=== PATIENT | male | born 1945 | race Caucasian/White ===

== ENCOUNTER 2021-04-04 12:29 | Inpatient (IN) ==
[2021-04-04] MEDS ORDERED: ONDANSETRON 4 MG/2 ML VIAL IV PRN (14:46)
[2021-04-04] MEDS ORDERED: hydrALAZINE 20 MG/1 ML VIAL IV PRN (14:46)
[2021-04-04] MEDS ORDERED: ACETAMINOPHEN 325 MG TABLET PO PRN (14:46)
[2021-04-04] MEDS ORDERED: ENOXAPARIN 40 MG/0.4 ML SYRINGE SUBCUT SCH (15:00)
[2021-04-04] MEDS ORDERED: HALOPERIDOL 5 MG/ML AMP IM ONE (16:44)
[2021-04-04 16:52] LABS: Basophils % 0.4 % (0.0-0.8); Eosinophils % 0.5 % (0.00-10.9); Hemoglobin 8.5 GM/DL (14.0-18.0); Immature Granulocytes % 0.8 %; Immature Granulocytes Absolute 0.06 #; Lymphocytes # 1.2 10*3/uL (1.4-4.0); Lymphocytes % 14.9 % (21.2-54.2); Mean Corpuscular HGB Conc 32.7 GM/DL (32-36); Mean Corpuscular Volume 116.1 FL (87-102); Mean Platelet Volume 9.7 FL (9.6-12.0); Monocytes % 3.5 % (1.7-12.7); Neutrophils % 79.9 % (38.7-73.9); Platelet Count 307 T/CUMM (130-400); Red Blood Count 2.24 MC/CUMM (3.8-5.5); Red Cell Distribution Width 14.7 % (9.3-17.3); White Blood Count 7.7 T/CUMM (4-12)
[2021-04-04 17:04] LABS: Albumin 3.9 G/DL (3.4-5.0); Bilirubin,Total 0.8 MG/DL (0.2-1.0); Calcium 8.9 MG/DL (8.5-10.1); Osmolality,Calculated 285.5 MOS/KG (273-304); Potassium 5.4 MMOL/L (3.5-5.1); Total Protein 6.8 G/DL (6.4-8.2)
[2021-04-04] MEDS: SODIUM CHLORIDE 0.9% 1,000 ML IV SCH (17:18)
[2021-04-04] MEDS ORDERED: ENOXAPARIN 30 MG/0.3 ML SYRINGE SUBCUT SCH (18:30)
[2021-04-04 23:18] LABS: Hematocrit 23.8 VOL% (42.0-52.0); Hemoglobin 7.8 GM/DL (14.0-18.0)
[2021-04-05] MEDS: SODIUM CHLORIDE 0.9% 1,000 ML IV SCH ×2 (03:21→15:03)
[2021-04-05] MEDS: MORPHINE 4 MG/1 ML VIAL IV PRN (04:20)
[2021-04-05 05:51] LABS: Basophils % 0.3 % (0.0-0.8); Eosinophils % 0.3 % (0.00-10.9); Hematocrit 24.5 VOL% (42.0-52.0); Immature Granulocytes % 0.9 %; Immature Granulocytes Absolute 0.06 #; Lymphocytes # 0.9 10*3/uL (1.4-4.0); Lymphocytes % 13.7 % (21.2-54.2); Mean Corpuscular HGB Conc 32.7 GM/DL (32-36); Mean Corpuscular Volume 117.2 FL (87-102); Mean Platelet Volume 9.2 FL (9.6-12.0); Neutrophils % 79.8 % (38.7-73.9); Platelet Count 268 T/CUMM (130-400); Red Blood Count 2.09 MC/CUMM (3.8-5.5); Red Cell Distribution Width 14.6 % (9.3-17.3); White Blood Count 6.8 T/CUMM (4-12)
[2021-04-05 06:13] LABS: Calcium 8.5 MG/DL (8.5-10.1); Osmolality,Calculated 294.7 MOS/KG (273-304); Potassium 5.2 MMOL/L (3.5-5.1)
[2021-04-05] MEDS: PANTOPRAZOLE 40 MG TABLET PO SCH (08:18)
[2021-04-05] MEDS ORDERED: PROPYLENE GLYCOL 0.6% BOTH EYES PRN (10:24)
[2021-04-05] MEDS ORDERED: SODIUM POLYSTYRENE SULFATE 15 GM/60 ML BOTTLE PO STA (10:31)
[2021-04-05] MEDS: cefTRIAXone 2,000 MG in SODIUM CHLORIDE 0.9% 100 ML IV SCH (15:04)
[2021-04-05] MEDS: VANCOMYCIN INJ 1,000 MG in SODIUM CHLORIDE 0.9% 250 ML IV SCH (16:40)
[2021-04-05] MEDS: LINACLOTIDE 145 MCG CAPSULE PO SCH ×2 (16:41→21:04)
[2021-04-05] MEDS ORDERED: SEVOFLURANE 1 UNIT/15 MINUTE INH ONE ×3 (16:45→17:18)
[2021-04-05] MEDS ORDERED: DEXAMETHASONE 4 MG/1 ML VIAL ONE ×2 (16:45→21:14)
[2021-04-05] MEDS ORDERED: ONDANSETRON 4 MG/2 ML VIAL ONE (16:45)
[2021-04-05] MEDS ORDERED: propofoL 200 MG/20 ML VIAL IV ONE (16:45)
[2021-04-05] MEDS ORDERED: ETOMIDATE 40 MG/20 ML VIAL IV ONE (16:45)
[2021-04-05] MEDS ORDERED: LIDOCAINE 2% 5 ML VIAL ONE (16:45)
[2021-04-05] MEDS ORDERED: ROCURONIUM 50 MG/5 ML VIAL IV ONE (16:45)
[2021-04-05] MEDS ORDERED: fentaNYL 100 MCG/2 ML VIAL ONE (16:46)
[2021-04-05] MEDS ORDERED: ACETAMINOPHEN INJ 1,000 MG/100 ML VIAL IV ONE (17:18)
[2021-04-05] MEDS ORDERED: MIDAZOLAM 2 MG/2 ML VIAL ONE (20:06)
[2021-04-05] MEDS ORDERED: ePHEDrine 50 MG/ML VIAL ONE (21:03)
[2021-04-05] MEDS: SENNA 8.6 MG TABLET PO SCH (21:04)
[2021-04-05] MEDS: MEMANTINE 5 MG TABLET PO SCH (21:04)
[2021-04-05] MEDS: SIMETHICONE 180 MG PO SCH (21:04)
[2021-04-05] MEDS ORDERED: ceFAZolin 1,000 MG VIAL ONE (21:10)
[2021-04-05] MEDS ORDERED: NEOSTIGMINE 10 MG/10 ML VIAL ONE (21:14)
[2021-04-05] MEDS ORDERED: GLYCOPYRROLATE 0.4 MG/2 ML VIAL ONE (21:14)
[2021-04-05] MEDS ORDERED: LACTATED RINGERS 1,000 ML IV ONE (21:41)
[2021-04-05] MEDS ORDERED: PHENYLEPHRINE 1 MG/10 ML SYRINGE IV ONE (21:43)
[2021-04-06] MEDS: SODIUM CHLORIDE 0.9% 1,000 ML IV SCH ×3 (00:20→15:30)
[2021-04-06] MEDS: cefTRIAXone 2,000 MG in SODIUM CHLORIDE 0.9% 100 ML IV SCH ×2 (02:05→15:29)
[2021-04-06 05:41] LABS: Calcium 8.3 MG/DL (8.5-10.1); Osmolality,Calculated 298.3 MOS/KG (273-304); Potassium 4.6 MMOL/L (3.5-5.1)
[2021-04-06 05:46] LABS: Folate 4.74 NG/ML (5.38-24.0)
[2021-04-06 06:53] LABS: Basophils % 0.1 % (0.0-0.8); Hematocrit 20.7 VOL% (42.0-52.0); Hemoglobin 6.7 GM/DL (14.0-18.0); Immature Granulocytes % 0.7 %; Immature Granulocytes Absolute 0.06 #; Lymphocytes # 0.8 10*3/uL (1.4-4.0); Lymphocytes % 10.2 % (21.2-54.2); Mean Corpuscular HGB Conc 32.4 GM/DL (32-36); Mean Corpuscular Volume 116.9 FL (87-102); Mean Platelet Volume 9.9 FL (9.6-12.0); Monocytes % 5.2 % (1.7-12.7); Neutrophils % 83.8 % (38.7-73.9); Platelet Count 277 T/CUMM (130-400); Red Blood Count 1.77 MC/CUMM (3.8-5.5); Red Cell Distribution Width 15.2 % (9.3-17.3)
[2021-04-06 07:28] LABS: Hypochromasia 1+; Microcytosis 1+; Platelet Estimate Adequate
[2021-04-06] MEDS ORDERED: ESCITALOPRAM 10 MG TABLET PO SCH (09:00)
[2021-04-06] MEDS: HYDROXYUREA 500 MG CAPSULE PO SCH (09:52)
[2021-04-06] MEDS: ASPIRIN EC 81 MG TABLET PO SCH (09:52)
[2021-04-06] MEDS: BISACODYL 5 MG TABLET PO SCH (09:52)
[2021-04-06] MEDS: PANTOPRAZOLE 40 MG TABLET PO SCH (09:53)
[2021-04-06] MEDS: GABAPENTIN 300 MG CAPSULE PO SCH (09:53)
[2021-04-06] MEDS: LINACLOTIDE 145 MCG CAPSULE PO SCH ×3 (09:53→20:54)
[2021-04-06] MEDS: POLYETHYLENE GLYCOL POWDER 17 GM PACK PO SCH (09:53)
[2021-04-06] MEDS: SENNA 8.6 MG TABLET PO SCH ×2 (09:53→20:54)
[2021-04-06] MEDS: SIMETHICONE 180 MG PO SCH ×2 (09:53→21:02)
[2021-04-06] MEDS: DOCUSATE SODIUM 100 MG CAPSULE PO SCH (09:55)
[2021-04-06] MEDS ORDERED: SODIUM CHLORIDE 0.9% 1,000 ML IV PRN (10:35)
[2021-04-06 10:47] LABS: Eosinophils % 0.1 % (0.00-10.9); Hematocrit 21.4 VOL% (42.0-52.0); Hemoglobin 6.9 GM/DL (14.0-18.0); Immature Granulocytes % 0.5 %; Immature Granulocytes Absolute 0.04 #; Lymphocytes # 1.2 10*3/uL (1.4-4.0); Mean Corpuscular HGB Conc 32.2 GM/DL (32-36); Mean Corpuscular Volume 116.9 FL (87-102); Mean Platelet Volume 9.6 FL (9.6-12.0); Monocytes % 5.6 % (1.7-12.7); Neutrophils % 79.8 % (38.7-73.9); Platelet Count 272 T/CUMM (130-400); Red Blood Count 1.83 MC/CUMM (3.8-5.5); Red Cell Distribution Width 15.5 % (9.3-17.3); White Blood Count 8.2 T/CUMM (4-12)
[2021-04-06 11:10] LABS: Folate 4.76 NG/ML (5.38-24.0); Vitamin B12 966 PG/ML (211-911)
[2021-04-06 12:53] LABS: Sedimentation Rate-Westergren 80 MM/HR (0-20)
[2021-04-06] MEDS: MORPHINE 4 MG/1 ML VIAL IV PRN (15:29)
[2021-04-06] MEDS: VANCOMYCIN INJ 1,000 MG in SODIUM CHLORIDE 0.9% 250 ML IV SCH (17:49)
[2021-04-06] MEDS: MEMANTINE 5 MG TABLET PO SCH (20:54)
[2021-04-07] MEDS: SODIUM CHLORIDE 0.9% 1,000 ML IV SCH ×3 (00:25→08:42)
[2021-04-07] MEDS: cefTRIAXone 2,000 MG in SODIUM CHLORIDE 0.9% 100 ML IV SCH ×2 (01:38→13:20)
[2021-04-07 07:21] LABS: Basophils % 0.3 % (0.0-0.8); Eosinophils % 0.4 % (0.00-10.9); Hemoglobin 8.3 GM/DL (14.0-18.0); Immature Granulocytes % 1.2 %; Immature Granulocytes Absolute 0.09 #; Lymphocytes % 13.6 % (21.2-54.2); Mean Corpuscular HGB Conc 33.2 GM/DL (32-36); Mean Corpuscular Volume 109.2 FL (87-102); Monocytes % 4.9 % (1.7-12.7); Neutrophils % 79.6 % (38.7-73.9); Platelet Count 268 T/CUMM (130-400); Red Blood Count 2.29 MC/CUMM (3.8-5.5); Red Cell Distribution Width 20.3 % (9.3-17.3); White Blood Count 7.6 T/CUMM (4-12)
[2021-04-07 07:41] LABS: Calcium 7.9 MG/DL (8.5-10.1); Osmolality,Calculated 309.3 MOS/KG (273-304); Potassium 3.8 MMOL/L (3.5-5.1)
[2021-04-07] MEDS: ASPIRIN EC 81 MG TABLET PO SCH (08:50)
[2021-04-07] MEDS: POLYETHYLENE GLYCOL POWDER 17 GM PACK PO SCH (08:50)
[2021-04-07] MEDS: HYDROXYUREA 500 MG CAPSULE PO SCH (08:50)
[2021-04-07] MEDS: DOCUSATE SODIUM 100 MG CAPSULE PO SCH (08:50)
[2021-04-07] MEDS: LINACLOTIDE 145 MCG CAPSULE PO SCH ×3 (08:50→20:22)
[2021-04-07] MEDS: BISACODYL 5 MG TABLET PO SCH (08:50)
[2021-04-07] MEDS: PANTOPRAZOLE 40 MG TABLET PO SCH (08:50)
[2021-04-07] MEDS: SENNA 8.6 MG TABLET PO SCH ×2 (08:50→20:22)
[2021-04-07] MEDS: GABAPENTIN 300 MG CAPSULE PO SCH (08:50)
[2021-04-07] MEDS: SIMETHICONE 180 MG PO SCH ×2 (08:51→20:22)
[2021-04-07 10:30] LABS: Bacteria,Urine Occasional /HPF (Few); Bilirubin,Urine Negative (Negative); Blood, Urine Negative (Negative); Glucose,Urine (UA) Negative (Negative); Ketones,Urine 5 mg/dL (Negative); Mucus,Urine Occasional /LPF (Occasional); Nitrite,Urine Negative (Negative); Protein,Urine Negative; RBC,Urine 1 /HPF (0-4); Urine Appearance CLEAR (Clear); Urine Color Yellow (Yellow); Urine Specific Gravity 1.011 (1.001-1.035); Urine Urobilinogen < 2.0 EU/DL (0.2-1.0)
[2021-04-07] MEDS: DEXTROSE 5% 1,000 ML IV SCH (10:36)
[2021-04-07] MEDS: FOLIC ACID 1 MG TABLET PO SCH (14:31)
[2021-04-07] MEDS: VANCOMYCIN INJ 1,000 MG in SODIUM CHLORIDE 0.9% 250 ML IV SCH (15:30)
[2021-04-07] MEDS: MEMANTINE 5 MG TABLET PO SCH (20:22)
[2021-04-08] MEDS: cefTRIAXone 2,000 MG in SODIUM CHLORIDE 0.9% 100 ML IV SCH ×2 (01:06→13:38)
[2021-04-08] MEDS: DEXTROSE 5% 1,000 ML IV SCH ×2 (04:00→13:38)
[2021-04-08 05:39] LABS: Basophils % 0.3 % (0.0-0.8); Eosinophils # 0.1 10*3/uL (0.0-0.87); Eosinophils % 0.5 % (0.00-10.9); Hematocrit 28.6 VOL% (42.0-52.0); Hemoglobin 9.4 GM/DL (14.0-18.0); Immature Granulocytes % 0.9 %; Lymphocytes # 1.8 10*3/uL (1.4-4.0); Lymphocytes % 15.9 % (21.2-54.2); Mean Corpuscular HGB Conc 32.9 GM/DL (32-36); Mean Corpuscular Volume 111.3 FL (87-102); Mean Platelet Volume 10.1 FL (9.6-12.0); Monocytes % 5.4 % (1.7-12.7); Platelet Count 316 T/CUMM (130-400); Red Blood Count 2.57 MC/CUMM (3.8-5.5); Red Cell Distribution Width 19.2 % (9.3-17.3)
[2021-04-08 05:55] LABS: Calcium 8.2 MG/DL (8.5-10.1); Osmolality,Calculated 307.4 MOS/KG (273-304); Potassium 3.6 MMOL/L (3.5-5.1)
[2021-04-08 05:59] LABS: Hypochromasia 1+; Microcytosis 1+
[2021-04-08 06:00] LABS: Anisocytosis 1+; Platelet Estimate Normal
[2021-04-08] MEDS: DOCUSATE SODIUM 100 MG CAPSULE PO SCH (08:17)
[2021-04-08] MEDS: ASPIRIN EC 81 MG TABLET PO SCH (08:17)
[2021-04-08] MEDS: BISACODYL 5 MG TABLET PO SCH (08:17)
[2021-04-08] MEDS: HYDROXYUREA 500 MG CAPSULE PO SCH (08:17)
[2021-04-08] MEDS: FOLIC ACID 1 MG TABLET PO SCH (08:17)
[2021-04-08] MEDS: LINACLOTIDE 145 MCG CAPSULE PO SCH (08:17)
[2021-04-08] MEDS: POLYETHYLENE GLYCOL POWDER 17 GM PACK PO SCH (08:17)
[2021-04-08] MEDS: SIMETHICONE 180 MG PO SCH ×2 (08:18→20:33)
[2021-04-08] MEDS: SENNA 8.6 MG TABLET PO SCH ×2 (08:18→20:33)
[2021-04-08] MEDS: PANTOPRAZOLE 40 MG TABLET PO SCH (08:18)
[2021-04-08] MEDS: GABAPENTIN 300 MG CAPSULE PO SCH (08:18)
[2021-04-08 09:23] LABS: Hemoglobin A1 (Alkaline) 97.6 % (96.5-98.5); Hemoglobin A2 (Alkaline) 2.4 % (1.5-3.5)
[2021-04-08] MEDS: MORPHINE 4 MG/1 ML VIAL IV PRN (15:43)
[2021-04-08] MEDS: ZIPRASIDONE 20 MG/1 ML VIAL IM PRN (18:00)
[2021-04-08] MEDS ORDERED: METOPROLOL TARTRATE 5 MG/5 ML VIAL IV PRN (19:13)
[2021-04-08] MEDS: METOPROLOL TARTRATE 5 MG/5 ML VIAL IV SCH ×3 (19:45→19:55)
[2021-04-08] MEDS: MEMANTINE 5 MG TABLET PO SCH (20:33)
[2021-04-09 01:22] LABS: Basophils % 0.1 % (0.0-0.8); Eosinophils # 0.1 10*3/uL (0.0-0.87); Eosinophils % 0.5 % (0.00-10.9); Hematocrit 26.8 VOL% (42.0-52.0); Hemoglobin 9.2 GM/DL (14.0-18.0); Immature Granulocytes % 0.5 %; Immature Granulocytes Absolute 0.05 #; Lymphocytes # 1.1 10*3/uL (1.4-4.0); Lymphocytes % 11.3 % (21.2-54.2); Mean Corpuscular HGB Conc 34.3 GM/DL (32-36); Mean Corpuscular Volume 107.6 FL (87-102); Mean Platelet Volume 10.1 FL (9.6-12.0); Monocytes % 5.6 % (1.7-12.7); Platelet Count 295 T/CUMM (130-400); Red Blood Count 2.49 MC/CUMM (3.8-5.5); Red Cell Distribution Width 18.6 % (9.3-17.3); White Blood Count 10.1 T/CUMM (4-12)
[2021-04-09] MEDS: cefTRIAXone 2,000 MG in SODIUM CHLORIDE 0.9% 100 ML IV SCH ×2 (01:34→14:52)
[2021-04-09 01:38] LABS: Calcium 7.9 MG/DL (8.5-10.1); Osmolality,Calculated 298.3 MOS/KG (273-304); Potassium 3.3 MMOL/L (3.5-5.1)
[2021-04-09 01:47] LABS: INR 1.9; PT Patient Result 20.2 SECS (10.5-12.0)
[2021-04-09] MEDS: DEXTROSE 5% 1,000 ML IV SCH ×4 (03:26→16:59)
[2021-04-09] MEDS ORDERED: LACTATED RINGERS 1,000 ML IV SCH (08:00)
[2021-04-09] MEDS: LINACLOTIDE 145 MCG CAPSULE PO SCH (08:02)
[2021-04-09] MEDS: ASPIRIN EC 81 MG TABLET PO SCH (08:02)
[2021-04-09] MEDS: FOLIC ACID 1 MG TABLET PO SCH (08:02)
[2021-04-09] MEDS: HYDROXYUREA 500 MG CAPSULE PO SCH (08:02)
[2021-04-09] MEDS: POLYETHYLENE GLYCOL POWDER 17 GM PACK PO SCH (08:02)
[2021-04-09] MEDS: DOCUSATE SODIUM 100 MG CAPSULE PO SCH (08:02)
[2021-04-09] MEDS: BISACODYL 5 MG TABLET PO SCH (08:02)
[2021-04-09] MEDS: GABAPENTIN 300 MG CAPSULE PO SCH (08:03)
[2021-04-09] MEDS: SIMETHICONE 180 MG PO SCH ×2 (08:03→20:27)
[2021-04-09] MEDS: PANTOPRAZOLE 40 MG TABLET PO SCH (08:03)
[2021-04-09] MEDS: SENNA 8.6 MG TABLET PO SCH ×2 (08:03→20:27)
[2021-04-09] MEDS: POTASSIUM CHLORIDE RIDER 10 MEQ/100 ML PREMIX IV PRN ×4 (09:15→12:28)
[2021-04-09] MEDS: METOPROLOL TARTRATE 25 MG TABLET PO SCH ×2 (13:00→20:27)
[2021-04-09] MEDS ORDERED: PHYTONADIONE 10 MG/1 ML AMP SUBCUT ONE (17:40)
[2021-04-09] MEDS: MEMANTINE 5 MG TABLET PO SCH (20:27)
[2021-04-10] MEDS: ZIPRASIDONE 20 MG/1 ML VIAL IM PRN (00:50)
[2021-04-10] MEDS: cefTRIAXone 2,000 MG in SODIUM CHLORIDE 0.9% 100 ML IV SCH ×2 (02:58→14:28)
[2021-04-10] MEDS: DEXTROSE 5% 1,000 ML IV SCH ×3 (03:58→15:11)
[2021-04-10 05:31] LABS: Basophils % 0.2 % (0.0-0.8); Eosinophils # 0.1 10*3/uL (0.0-0.87); Eosinophils % 1.4 % (0.00-10.9); Hematocrit 28.3 VOL% (42.0-52.0); Hemoglobin 9.6 GM/DL (14.0-18.0); Immature Granulocytes % 0.4 %; Immature Granulocytes Absolute 0.04 #; Lymphocytes # 1.6 10*3/uL (1.4-4.0); Lymphocytes % 16.2 % (21.2-54.2); Mean Corpuscular HGB Conc 33.9 GM/DL (32-36); Mean Corpuscular Volume 108.8 FL (87-102); Mean Platelet Volume 11.1 FL (9.6-12.0); Neutrophils % 76.8 % (38.7-73.9); Platelet Count 252 T/CUMM (130-400); Red Cell Distribution Width 17.5 % (9.3-17.3); White Blood Count 9.8 T/CUMM (4-12)
[2021-04-10 05:49] LABS: INR 1.4
[2021-04-10 05:55] LABS: Calcium 8.1 MG/DL (8.5-10.1); Osmolality,Calculated 282.1 MOS/KG (273-304); Potassium 4.5 MMOL/L (3.5-5.1)
[2021-04-10] MEDS ORDERED: LACTATED RINGERS 1,000 ML IV SCH (08:00)
[2021-04-10] MEDS: BISACODYL 5 MG TABLET PO SCH (08:17)
[2021-04-10] MEDS: GABAPENTIN 300 MG CAPSULE PO SCH (08:17)
[2021-04-10] MEDS: LINACLOTIDE 145 MCG CAPSULE PO SCH (08:17)
[2021-04-10] MEDS: ASPIRIN EC 81 MG TABLET PO SCH (08:17)
[2021-04-10] MEDS: METOPROLOL TARTRATE 25 MG TABLET PO SCH ×2 (08:17→20:49)
[2021-04-10] MEDS: FOLIC ACID 1 MG TABLET PO SCH (08:17)
[2021-04-10] MEDS: PANTOPRAZOLE 40 MG TABLET PO SCH (08:17)
[2021-04-10] MEDS: POLYETHYLENE GLYCOL POWDER 17 GM PACK PO SCH (08:17)
[2021-04-10] MEDS: DOCUSATE SODIUM 100 MG CAPSULE PO SCH (08:17)
[2021-04-10] MEDS: SENNA 8.6 MG TABLET PO SCH ×2 (08:17→20:49)
[2021-04-10] MEDS: SIMETHICONE 180 MG PO SCH ×2 (08:17→20:49)
[2021-04-10] MEDS: HYDROXYUREA 500 MG CAPSULE PO SCH (08:17)
[2021-04-10] MEDS ORDERED: ENOXAPARIN 60 MG/0.6 ML SYRINGE SUBCUT SCH (11:30)
[2021-04-10 15:36] VITALS: BP 122/74
[2021-04-10] MEDS: MEMANTINE 5 MG TABLET PO SCH (20:49)
== END 2021-04-10 22:31 | DRG 521 ==
LOC: SUATTDRO 14:03 → N.3E 14:03 → N.TELEN 04-08 20:06
PROVIDERS: ADMIT Internal Medicine; ATTEND Internal Medicine